=== PATIENT | female | born 1995 | race Hispanic/Latino ===

== ENCOUNTER 2017-04-23 10:42 | Emergency (ER) | payer OTHER ==
[2017-04-23 10:47] VITALS: O2SAT 100
[2017-04-23 10:48] VITALS: BMI 20.1
[2017-04-23] MEDS ORDERED: Sodium Chloride 0.9% 1,000 ML IV STA (11:08)
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
[2017-04-23 11:58] LABS: BASO # 0.1 K/uL (0.0-0.2); BASO % 1.5 % (0.0-2.0); EOS # 0.1 K/uL (0.0-0.7); LYMPH # 1.5 K/uL (1.0-4.3); LYMPH % 29.7 % (20.0-40.0); MEAN CELL VOLUME 92.4 fl (81.0-99.0); MEAN CORPUSCULAR HEMOGLOBIN 30.5 pg (27.0-31.0); MEAN PLATELET VOLUME 9.1 fl (7.2-11.7); MONO # 0.4 K/uL (0.0-0.8); MONO % 8.5 % (0.0-10.0); NEUT # 2.9 K/uL (1.8-7.0); NEUT % 58.3 % (50.0-75.0); NRBC % 0.2 % (0.0-0.0); RBC 4.59 Mil/uL (3.80-5.20); RED CELL DISTRIBUTION WIDTH 13.2 % (11.5-14.5)
[2017-04-23 13:21] LABS: BLOOD UREA NITROGEN 22 mg/dl (7-17); GFR AFRICAN-AMERICAN > 60; GFR NON-AFRICAN AMERICAN > 60
[2017-04-23 13:22] LABS: ALB/GLOB RATIO 1.7 (1.0-2.1); ALBUMIN 4.7 g/dL (3.5-5.0); ALT/SGPT 42 U/L (9-52); AST/SGOT 40 U/L (14-36); CALCIUM 9.6 mg/dL (8.4-10.2)
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
[2017-04-23] MEDS ORDERED: Lidocaine 5% Patch TD ONE (14:36)
[2017-04-23] MEDS ORDERED: Lidocaine 5% Patch TD STA (14:36)
[2017-04-23 14:59] VITALS: BP 110/68; PULSE 66; RESP 18; TEMP 98
--- NOTE | 2017-04-24 12:51 | CARD ---
APPROVED REPORT EKG Measurement Heart [id number] <Conclusion> Marked sinus bradycardia with 1st degree AV block Rightward axis RSR' or QR pattern in V1 suggests right ventricular conduction delay Abnormal ECG
== END 2017-04-23 14:50 | disposition home or self-care (01) ==
LOC: H.ER 10:42
DX: S29.9XXA Unspecified injury of thorax, initial encounter (principal); Y93.55 Activity, bike riding; F79 Unspecified intellectual disabilities; E03.9 Hypothyroidism, unspecified; Z95.0 Presence of cardiac pacemaker; V13.4XXA Pedal cycle driver injured in collision with car, pick-up truck or van in traffic accident, initial encounter